=== PATIENT | male | born 1990 | race Caucasian/White ===

== ENCOUNTER → 2020-08-05 08:49 | Outpatient (CLI) | payer SELFPAY ==
--- NOTE | 2020-08-05 08:57 | VDLE_ITS ---
Reason For Study: Hx of DVT RIGHT GSV is normal. CFV is compressible, spontaneous, phasic, competent and demonstrates normal augmentation. FV is compressible, spontaneous, phasic, competent and demonstrates normal augmentation. POP V is compressible, spontaneous, phasic, competent and demonstrates normal augmentation. T/P Trunk is compressible. PTV is compressible. RT PerV is compressible. Procedure Exam performed in department. A preliminary report was called and/or faxed to [facility]. Interpretation Summary Deep veins of the right lower extremity are patent and compressible segmentally. There is no evidence of right lower extremity deep vein thrombosis. Valvular competence appears intact within the proximal deep venous system on the right . The right great saphenous vein appears patent and compressible segmentally. Ordering Physician: Matthew Loera Referring Physician: Matthew Loera Performed By: Jennifer Reid RVT
== END ==
PROVIDERS: PCP Physician Assistant; Referring Provider Physician Assistant; Visit Provider Physician Assistant
DX: Z86.718 Personal history of other venous thrombosis and embolism (principal)
CPT/HCPCS: 93971

== ENCOUNTER → 2020-09-05 12:03 | Outpatient (CLI) | payer SELFPAY | PROVIDERS: PCP Physician Assistant; Referring Provider Physician Assistant; Visit Provider Physician Assistant | DX: U07.1 COVID-19 (principal) | CPT/HCPCS: 87635; C9803; U0003 ==

== ENCOUNTER 2024-03-03 10:43 | Inpatient (IN) | payer SELFPAY ==
[2024-03-03] VITALS (13 sets, daily range): BP systolic 106–136; BP diastolic 62–84; PULSE 75–93; RESP 14–18; TEMP 36.8–37.3; O2SAT 94–98; BMI 28.7; BMI 28.6
--- NOTE | 2024-03-03 12:58 | ED.VIS.LOWEX ---
HPI History of Present Illness HPI Narrative: Patient presents with left knee pain and swelling that has been getting worse over the past 5 days. Patient was seen yesterday at a different facility and had aspiration performed there. Patient states that they sandra off 75 cc of cloudy yellow fluid. Patient states he was given a dose of IM Rocephin and was started on Augmentin. Patient states that he was still having some pain and swelling today. Patient states that that he was told to come to the emergency department for further testing. Patient states he has been running low-grade fevers of 100.6 at home. Chief Complaint: Lower Extremity Injury Informant: patient Onset/Context/Timing Onset: Days (5) Timing: Continuous Quality of Pain: Sharp Location: Left knee Worsened by: Movement Relieved by: Rest Associated Symptoms Associated Symptoms: Negative for Parasthesia or Weakness PFSH FOR[facility]LY [facility], [facility] Medical History (Updated 03/03/24 @ 17:[address] Zuhair Butt DO) DVT (deep venous thrombosis) Allergy/AdvReac Type Severity Reaction Status Date / Time No Known Allergies Allergy Verified 03/03/24 10:43 Surgical History (Updated 03/03/24 @ 15:[address] Zuhair Butt DO) History of repair of ACL Social History Smoking Status: Never smoker ROS ROS ED Constitutional Constitutional ED: Reports fever(s); Denies chills Eyes Eyes: Denies blurry vision or change in vision ENT ENT ED: Denies rhinorrhea or sore throat Cardiovascular Cardiovascular: Denies chest pain or palpitations Respiratory/Chest Respiratory/Chest: Reports cough; Denies dyspnea Gastrointestinal Gastrointestinal: Denies nausea or vomiting Genitourinary Genitourinary ED: Denies dysuria or hematuria Musculoskeletal Musculoskeletal: Denies back pain or neck pain Integumentary Denies abscess or rash Neurologic Neurologic: Denies headache(s) or weakness Allergic/Immunologic Allergic/Immunologic ED: Denies mouth swelling or urticaria EXAM Physical Exam Const Vital Signs: 03/03/24 10:44 03/03/24 12:00 03/03/24 13:00 Temperature 99.1 F 98.3 F 98.4 F Temperature Source Temporal Oral Oral Pulse Rate 93 82 82 Respiratory Rate 18 16 18 Blood Pressure 133/79 H 134/84 H 134/71 H Blood Pressure Mean 97 100 92 Pulse Ox 96 94 98 Oxygen Delivery Method Room Air Room Air Room Air 03/03/24 14:00 03/03/24 15:00 03/03/24 16:00 Temperature 98.2 F 98.5 F 98.4 F Temperature Source Temporal Temporal Oral Pulse Rate 79 78 85 Respiratory Rate 14 16 16 Blood Pressure 131/73 H 128/74 H 125/68 H Blood Pressure Mean 92 92 87 Pulse Ox 98 98 97 Oxygen Delivery Method Room Air Room Air 03/03/24 17:00 03/03/24 18:03 Temperature 98.2 F 98.9 F Temperature Source Oral Temporal Pulse Rate 81 84 Respiratory Rate 16 16 Blood Pressure 126/82 H 129/80 H Blood Pressure Mean 96 96 Pulse Ox 97 98 Oxygen Delivery Method Room Air Room Air Positive well nourished and well developed General Appearance ED: well developed and NAD HEENT Reports moist mucous membranes Neck full ROM Resp normal respiratory effort and clear to auscultation bilaterally Cardio regular rate and regular rhythm GI non-tender and non-distended Palpation: soft Extremity Extremity Narrative: There is edema and effusion to the left knee. There is no erythema or warmth noted. Range of motion was slightly limited in complete flexion of the left knee secondary to pain. There is no pain with short arc range of motion. There is no ligamentous laxity noted. Neuro oriented x3, CN's II-XII intact bilaterally, moves all extremities and no sensory deficits noted Sensorium / Orientation: alert Motor Exam: strength 5/5 throughout Psych mental status grossly normal MDM MDM MDM Narrative Medical decision making narrative: Differential diagnosis includes arthritis, septic joint, pseudogout, and gout. CBC will be obtained to assess for leukocytosis or anemia. Basic metabolic profile will be obtained to assess for electrolyte abnormality and renal function. Serum lactate will be obtained to assess for sepsis. PT with INR and PTT will be obtained to assess for coagulopathy. Sed rate and CRP will be obtained to assess for inflammatory markers. Lab Data Attestation: I reviewed the patient's lab results. Lab results narrative: CBC was reviewed. White blood cell count was normal at 9.1. Sed rate was reviewed and was normal at 11. PT with INR was reviewed and was 16.2 and 1.3. PTT was reviewed and was within normal limits. Basic metabolic profile was reviewed and was within normal limits. Serum lactate was reviewed and was normal at 0.9. C-reactive protein was reviewed and was elevated at 105. Synovial Gram stain was reviewed and did not show any organisms. Labs: Laboratory Results - last 24 hr 03/03/24 13:20 WBC 9.1 RBC 5.38 Hgb 14.8 Hct 44.0 MCV 81.8 MCH 27.5 MCHC 33.6 RDW Std Deviation 34.5 L RDW Coeff of Camelia 11.8 Plt Count 287 MPV 9.8 Immature Gran % (Auto) 0.300 Neut % (Auto) 69.0 Lymph % (Auto) 17.6 L [place] % (Auto) 12.8 H Eos % (Auto) 0.1 Baso % (Auto) 0.2 Absolute Neuts (auto) 6.3 Absolute Lymphs (auto) 1.60 Nucleated RBC % 0 ESR 11 PT 16.2 H INR 1.3 APTT 34.0 Sodium 138 Potassium 3.5 Chloride 108 H Carbon Dioxide 26.0 Anion Gap 4 L BUN 14 Creatinine 0.82 Estim Creat Clear Calc 145.14 Est GFR (MDRD) Af Amer 140 Est GFR (MDRD) Non-Af 116 BUN/Creatinine Ratio 17.2 Glucose 93 Lactic Acid 0.9 Calcium 9.1 C-React Prot Ext Range 105.00 H Treatment and Re-Evaluation Narrative: Patient was started on Unasyn here. We were unable to obtain results of his arthrocentesis yesterday. Therefore, repeat arthrocentesis was performed today. The lateral aspect of the left knee was cleaned and prepped in a sterile manner using Betadine. Under sterile conditions, the left knee was aspirated. Initial synovial fluid was yellow. The second syringe noted some bleeding in the syringe. I was able to aspirate approximately 55 cc of synovial fluid. Patient felt better after this. Synovial fluid was sent for cell count and differential, Gram stain, crystals, and culture. Care of the patient will be turned over to the oncoming physician pending synovial fluid results. Discharge Plan Triage Chief Complaint: Lower Extremity Injury ED Provider: Zuhair Butt Dx/Rx/DC Orders Clinical Impression: Effusion of knee joint, left Primary Care Provider: Matthew Loera Referrals: Matthew Loera PA-C [Primary Care Provider] -
[2024-03-03] MEDS: Ampicillin/Sulbactam 3 GM in 0.9% Normal Saline (100mL MB+) 100 ML IV ×2 (13:31→23:36)
[2024-03-03 13:38] LABS: Erythrocyte Sedimentation Rate 11 mm/hr (0-20)
[2024-03-03 13:39] LABS: Absolute Neutrophil Count 6.3 X10^3/uL (2.0-7.7); Basophil# 0.02 X10^3/uL; Basophil% 0.2 % (0-1); Eosinophil# 0.01 X10^3/uL; Eosinophils% 0.1 % (0-5); Hemoglobin 14.8 g/dL (13.0-16.5); Lymphocyte % 17.6 % (19-41); Mean Corp Hgb Conc 33.6 g/dL (32-36); Mean Corpuscular Hgb 27.5 pg (27.0-32.0); Mean Corpuscular Volume 81.8 fL (80-94); Mean Platelet Vol. 9.8 fl (6.2-12.0); Monocyte# 1.16 X10^3/uL; Monocyte% 12.8 % (0-10); NRBC Flagged by Analyzer 0 % (0-5); Neutrophil # 6.26 X10^3/uL (2.7-7.7); Platelet Count 287 K/mm3 (150-450); RBC Distribution Width CV 11.8 % (11.6-14.6); RBC Distribution Width SD 34.5 fl (35.1-43.9); Red Blood Count 5.38 M/mm3 (4.6-6.2); White Blood Count 9.1 K/mm3 (4.4-11.0)
[2024-03-03 13:50] LABS: Anion Gap 4 (5-15); BUN 14 mg/dL (7-18); BUN/Creat Ratio 17.2 RATIO (10-20); Calcium,Total 9.1 mg/dL (8.5-10.1); Chloride 108 mmol/L (98-107); Creatinine, Serum 0.82 mg/dL (0.70-1.30); EST Glomerular Filtration Rate 116 mL/min (>60); Est Glom Filt Rate - Afr Amer 140 mL/min (>60); Estimated Creatinine Clearance 145.14 ml/min; Glucose 93 mg/dL (74-106); International Normalized Ratio 1.3; Potassium 3.5 mmol/L (3.5-5.1); Prothrombin Time (Protime)PT. 16.2 SECONDS (11.7-14.9); Sodium Level 138 mmol/L (136-145)
[2024-03-03 13:54] LABS: Lactic Acid 0.9 mmol/L (0.4-1.9)
[2024-03-03 18:20] LABS: Synovial Fld Mononuclear WBC # 2.103 10^3/ul; Synovial Fld Mononuclear WBC % 10.6 %; Synovial Fld Polynuclear WBC # 17.637 10^3/uL; Synovial Fld Polynuclear WBC % 89.4 %
[2024-03-03 19:28] LABS: RBC /Synovial Fluid 0.006 10^6/uL (0)
[2024-03-03 20:41] LABS: AUTO B FLUID DILUENT BKGD CT WBC <0.1 RBC <0.01 (W<.1,R<.01); CRYSTALS, BODY FLUID NO CRYSTALS SEEN; Lymph 11 %; Monocyte /Synovial Fluid 7 %; Neutrophil 82 % (0-25)
[2024-03-03 20:42] LABS: Appearance /Synovial Fluid Cloudy (CLEAR); Color / Synovial Fluid Yellow (Pale Yellow); Source / Synovial Fluid LEFT KNEE; Source- Body Fluid SYNOVIAL
[2024-03-03 20:44] LABS: Body Fluid QC Type(s) BF1Q,BF2Q; Pathologist Review Will follow
--- NOTE | 2024-03-03 20:57 | PCM.HP.STD ---
HPI - General General Date of Admission: 03/03/24 Date of Service: 03/03/24 Chief Complaint: Left Knee Pain, Swelling and Fever. HPI Narrative PARVIN JEFFREY, is a 33 M with a past medical history of being overweight; with BMI of 28.7 this admission and history of repair of Right ACL; with subsequent DVT who presents to [facility] ER complaining of left knee pain, swelling and fever. Mr. Jeffrey reports his symptoms began approximately 5 days prior to admission with a gradual onset of left knee swelling and pain that progressed to him being unable to walk due to worsening pain so he went to see a care provider at another facility earlier today who performed arthrocentesis on the left knee and aspirated ~75 cc of cloudy fluid with suspicion for possible septic arthritis. He was given a dose of IM Rocephin and started on oral mild Augmentin with patient noted to have a fever of 100.6 ?F at home. He describes the pain as sharp, severe and made worse with movement and is relieved by rest. He denies associated nausea, vomiting, paresthesias, focal neurologic weakness or previous bouts of septic arthritis. According to the records patient had a synovial Gram stain that did not show any organisms or crystals but we are also awaiting results of culture and sensitivity data to confirm suspicion of a possible septic joint. In the ER he was diagnosed with suspected septic arthritis of the left knee joint and he was then started on broad-spectrum antibiotics and transferred to the general medical floor for ongoing care for status expected to be greater than 48 hours. [facility] Medical History (Updated 03/04/24 @ 00:[address] Americo Rollins DO) DVT (deep venous thrombosis) Home Medications NK 03/03/24 [History Last Taken Unknown] Allergy/AdvReac Type Severity Reaction Status Date / Time No Known Allergies Allergy Verified 03/03/24 10:43 Surgical History (Updated 03/04/24 @ 00:[address] Americo Rollins DO) History of repair of ACL Social History Smoking Status: Never smoker ROS ROS Narrative Review of systems: General: Patient did have fever but denies chills. HENT: Denies headache, denies stuffy nose, denies sore throat EYES: Denies changes in vision or discharge from eyes. Resp: Denies cough, denies shortness of breath Cardiac: Denies chest pain, palpitations or heart racing. GI: Denies abdominal pain, denies changes in bowel, denies nausea or vomiting. : Denies changes in urination Extremity: Patient admits to significant left knee swelling with limited range of motion and pain increased with movement as per HPI. Musculoskeletal: Patient admits to arthralgia of the left knee but denies myalgias. Neuro: Patient denies headache, paresthesias or focal neurologic deficits. Heme: Denies any bleeding or bruising Skin: Denies rashes Psychiatric: No complaints voiced related to uncontrolled depression or anxiety. Endocrine: No polyuria, polydipsia or polyphagia. The rest of the 14 point ROS was negative except for positives in HPI. Vital Signs Vital Signs Vital Signs: 03/03/24 10:44 03/03/24 12:00 03/03/24 13:00 Temperature 99.1 F 98.3 F 98.4 F Temperature Source Temporal Oral Oral Pulse Rate 93 82 82 Respiratory Rate 18 16 18 Blood Pressure 133/79 H 134/84 H 134/71 H Blood Pressure Mean 97 100 92 Pulse Ox 96 94 98 Oxygen Delivery Method Room Air Room Air Room Air 03/03/24 14:00 03/03/24 15:00 03/03/24 16:00 Temperature 98.2 F 98.5 F 98.4 F Temperature Source Temporal Temporal Oral Pulse Rate 79 78 85 Respiratory Rate 14 16 16 Blood Pressure 131/73 H 128/74 H 125/68 H Blood Pressure Mean 92 92 87 Pulse Ox 98 98 97 Oxygen Delivery Method Room Air Room Air 03/03/24 17:00 03/03/24 18:03 03/03/24 19:00 Temperature 98.2 F 98.9 F 98.6 F Temperature Source Oral Temporal Oral Pulse Rate 81 84 81 Respiratory Rate 16 16 18 Blood Pressure 126/82 H 129/80 H 126/82 H Blood Pressure Mean 96 96 96 Pulse Ox 97 98 96 Oxygen Delivery Method Room Air Room Air Room Air 03/03/24 20:00 Temperature 98.2 F Temperature Source Oral Pulse Rate 75 Respiratory Rate 16 Blood Pressure 136/74 H Blood Pressure Mean 94 Pulse Ox 97 Oxygen Delivery Method Room Air Weight Weight: 200 lb Body Mass Index (BMI) 28.7 Physical Exam Const alert, oriented x3, no apparent distress, average body habitus and healthy appearing General Appearance: cooperative HEENT normocephalic, head/scalp atraumatic, hearing grossly normal bilaterally and moist oral mucous membranes Eyes PERRL and EOMs intact bilaterally Neck no lymphadenopathy and supple Resp normal respiratory effort, no retractions, no use of accessory muscles and clear to auscultation bilaterally Cardio regular rate and regular rhythm GI normal to inspection, nondistended, normoactive bowel sounds, soft to palpation, non-tender and non-distended Extremity Extremity Narrative: Left knee tender to palpation with very limited range of motion secondary to pain. No signs of vascular compromise or good pulses. Skin Skin Narrative: Patient has no evidence of rash or jaundice. Neuro oriented x3, CN's II-XII intact bilaterally, moves all extremities and no focal motor deficits Sensorium / Orientation: awake, alert, oriented to person, oriented to place and oriented to time Speech: speech normal Psych affect normal Results Medical Records Data Attestation: I reviewed the patient's medical records Lab / Micro Data Attestation: I reviewed the patient's lab results. 03/03/24 13:20 03/03/24 13:20 Labs: Laboratory Results - last 24 hr 03/03/24 13:20: WBC 9.1, RBC 5.38, Hgb 14.8, Hct 44.0, MCV 81.8, MCH 27.5, MCHC 33.6, RDW Std Deviation 34.5 L, RDW Coeff of Camelia 11.8, Plt Count 287, MPV 9.8, Immature Gran % (Auto) 0.300, Neut % (Auto) 69.0, Lymph % (Auto) 17.6 L, [place] % (Auto) 12.8 H, Eos % (Auto) 0.1, Baso % (Auto) 0.2, Absolute Neuts (auto) 6.3, Absolute Lymphs (auto) 1.60, Nucleated RBC % 0, ESR 11, PT 16.2 H, INR 1.3, APTT 34.0, Sodium 138, Potassium 3.5, Chloride 108 H, Carbon Dioxide 26.0, Anion Gap 4 L, BUN 14, Creatinine 0.82, Estim Creat Clear Calc 145.14, Est GFR (MDRD) Af Amer 140, Est GFR (MDRD) Non-Af 116, BUN/Creatinine Ratio 17.2, Glucose 93, Lactic Acid 0.9, Calcium 9.1, C-React Prot Ext Range 105.00 H 03/03/24 16:57: Fluid Crystals NO CRYSTALS SEEN, Fluid Crystal Source SYNOVIAL, Fl Crystal Path Review Will follow, Synovial Source LEFT KNEE, Synovial Color Yellow, Synovial Appearance Cloudy, Synovial WBC 14.4660 H, Synovial RBC 0.006 H, Synovial Tot Cell Ct 14.5200 H, Synov Polynuclear WBCs 17.637, Synov Mononuclear WBCs 2.103, Synovial Neutrophils 82 H, Synovial Lymphocytes 11, Synovial Monocytes 7, Synovial Polynuclear % 89.4, Synovial Mononuclear % 10.6, Synovial Path Comment May follow Micro: Microbiology 03/03/24 16:57 Aspirate - Knee Gram Stain - Final Assessment & Plan Assessment/Plan (1) Septic arthritis: QUALIFIERS: Septic arthritis location: knee Septic arthritis organism: due to unspecified organism Laterality: left Qualified Code(s): M00.9 - Pyogenic arthritis, unspecified (2) Effusion of knee joint, left: (3) History of DVT (deep vein thrombosis): (4) History of repair of ACL: PLAN: Plan 1. Suspected septic arthritis of the left knee joint with fever and severe left knee pain and swelling and ~75 cc of cloudy joint aspirate - Admit to general medical floor. Continue broad-spectrum antibiotics begun in the ER and await culture and sensitivity data. As soon as we confirm suspicion of bacterial infection in joint patient will be taken for I&D by orthopedic surgeon with consult appreciated in advance. Give Tylenol as needed for mild to moderate (level 1-5 out of 10) pain or fever. Give morphine IV as needed for severe (level 6-10 out of 10) pain. 2. Remote history of repair of Right ACL; with subsequent DVT with the patient currently not on anticoagulation - Noted. 3. Overweight; with BMI of 28.7 this admission - Weight loss will be recommended. 4. DVT prophylaxis - SCD on right lower extremity only with likely impending surgical I&D. Total time: Approximately 45 minutes. Charges/Coding Visit Charges Inpatient E&M: 63975 Init Hosp L1
--- NOTE | 2024-03-03 21:51 | RAD_ITS ---
INDICATION: suspected septic arthritis of left knee joint EXAMINATION/TECHNIQUE: X-RAY - LEFT XR Knee Complete 4 Views or More 4 VIEWS COMPARISON: No relevant prior comparison study available FINDINGS: SOFT TISSUES: No soft tissue swelling or gas. No radiopaque foreign body. BONES/JOINTS: There is normal alignment with the exception of narrowing of the medial compartment, subchondral sclerosis and cystic changes and osteophyte formation noted. There is a small joint effusion. Remaining joint spaces are maintained. Patellar osteophytes are present. RAD/Knee 4 or More Views IMPRESSION: 1. Osteophytic changes most notable in the medial compartment with joint space narrowing, subchondral sclerosis and cystic changes and osteophyte formation. 2. Joint effusion. 3. Patellar osteophytes. Electronically Signed: Helio Mendoza MD at 23:31 EDT ,
[2024-03-03] MEDS: 0.9% Normal Saline (1000mL) 1,000 ML 100 ML IV (23:35)
[2024-03-03] MEDS: 0.9% Saline Lock 10 ML Syringe IV (23:36)
[2024-03-04 04:00] VITALS: BP 126/76; PULSE 78; RESP 16; TEMP 37.2; O2SAT 96
--- NOTE | 2024-03-04 05:00 | EKG12_ITS ---
Test Reason : AM EKG Blood Pressure : / mmHG Vent. Rate : 088 BPM Atrial Rate : 088 BPM P-R Int : 152 ms QRS Dur : 096 ms QT Int : 344 ms P-R-T Axes : 012 067 025 degrees QTc Int : 416 ms Normal sinus rhythm Normal ECG No previous ECGs available Confirmed by RAJIV GRIER, LINCOLN ([id number]), editor sound GILLES BRITT ([id number]) on 03/09/2024 1:48:42 PM Referred By: Confirmed By:KELLY VANCE MD
[2024-03-04 06:00] VITALS: BMI 28.5
[2024-03-04] MEDS: Ampicillin/Sulbactam 3 GM in 0.9% Normal Saline (100mL MB+) 100 ML IV ×2 (06:00→13:18)
[2024-03-04 06:50] VITALS: BMI 28.6
[2024-03-04 07:03] LABS: Absolute Lymphocyte Count 1.45 X10^3/uL (0.83-4.51); Absolute Neutrophil Count 5.5 X10^3/uL (2.0-7.7); Basophil# 0.02 X10^3/uL; Basophil% 0.3 % (0-1); Eosinophil# 0.02 X10^3/uL; Eosinophils% 0.3 % (0-5); Hematocrit 40.9 % (40-54); Hemoglobin 14.1 g/dL (13.0-16.5); Lymphocyte # 1.45 X10^3/ul (0.83-4.51); Lymphocyte % 18.2 % (19-41); Mean Corp Hgb Conc 34.5 g/dL (32-36); Mean Corpuscular Hgb 28.4 pg (27.0-32.0); Mean Corpuscular Volume 82.5 fL (80-94); Mean Platelet Vol. 9.7 fl (6.2-12.0); Monocyte# 1.01 X10^3/uL; Monocyte% 12.7 % (0-10); NRBC Flagged by Analyzer 0 % (0-5); Neutrophil # 5.45 X10^3/uL (2.7-7.7); Neutrophil % 68.1 % (47-70); Platelet Count 279 K/mm3 (150-450); RBC Distribution Width CV 11.8 % (11.6-14.6); RBC Distribution Width SD 35.5 fl (35.1-43.9); Red Blood Count 4.96 M/mm3 (4.6-6.2)
[2024-03-04 07:39] LABS: ALB/GLOB Ratio 0.8 RATIO (0.9-2.4); AST(SGOT) 20 U/L (15-37); Alanine Aminotransfer ALT/SGPT 35 U/L (16-61); Albumin, Serum 2.9 g/dL (3.2-5.0); Alkaline Phosphatase 62 U/L (45-117); Anion Gap 4 (5-15); BUN 14 mg/dL (7-18); BUN/Creat Ratio 17.9 RATIO (10-20); Calcium,Total 8.5 mg/dL (8.5-10.1); Chloride 109 mmol/L (98-107); Creatinine, Serum 0.78 mg/dL (0.70-1.30); EST Glomerular Filtration Rate 121 mL/min (>60); Est Glom Filt Rate - Afr Amer 146 mL/min (>60); Estimated Creatinine Clearance 152.29 ml/min; Globulin 3.8 g/dL (2.2-4.2); Glucose 99 mg/dL (74-106); Potassium 3.5 mmol/L (3.5-5.1); Protein, Total 6.7 g/dL (6.4-8.2); Sodium Level 141 mmol/L (136-145)
[2024-03-04 07:50] VITALS: PULSE 78
[2024-03-04 08:22] VITALS: BP 126/71; PULSE 84; RESP 16; TEMP 36.6; O2SAT 93
[2024-03-04 08:25] VITALS: PULSE 84; RESP 16; O2SAT 93
--- NOTE | 2024-03-04 10:09 | PN.HOSP_ITS ---
Reason for Visit Reason for Visit: Diagnoses Pyogenic arthritis, unspecified (03/03/24) Effusion, left knee (03/03/24) Personal history of other venous thrombosis and embolism (03/03/24) Other specified postprocedural states (03/03/24) Objective Data Objective Data Vital Signs: Vital Signs Temp Pulse Resp BP Pulse Ox O2 Del Method 97.8 F 84 16 126/71 H 93 Room Air 03/04/24 08:22 03/04/24 08:25 03/04/24 08:25 03/04/24 08:22 03/04/24 08:25 03/04/24 08:25 Oxygen Delivery Method Room Air Weight: 199 lb 2.4 oz Body Mass Index (BMI) 28.6 Intake & Output: Intake and Output for Last 24 Hours 03/02/24 03/03/24 03/04/24 23:59 23:59 23:59 Intake Total 120.33 / 120.33 224 / 224 Balance 120.33 / 120.33 224 / 224 Lab / Micro Data 03/04/24 06:29 03/04/24 06:29 Labs: Laboratory Results - last 24 hr 03/03/24 13:20: WBC 9.1, RBC 5.38, Hgb 14.8, Hct 44.0, MCV 81.8, MCH 27.5, MCHC 33.6, RDW Std Deviation 34.5 L, RDW Coeff of Cmaelia 11.8, Plt Count 287, MPV 9.8, Immature Gran % (Auto) 0.300, Neut % (Auto) 69.0, Lymph % (Auto) 17.6 L, [place] % (Auto) 12.8 H, Eos % (Auto) 0.1, Baso % (Auto) 0.2, Absolute Neuts (auto) 6.3, Absolute Lymphs (auto) 1.60, Nucleated RBC % 0, ESR 11, PT 16.2 H, INR 1.3, APTT 34.0, Sodium 138, Potassium 3.5, Chloride 108 H, Carbon Dioxide 26.0, Anion Gap 4 L, BUN 14, Creatinine 0.82, Estim Creat Clear Calc 145.14, Est GFR (MDRD) Af Amer 140, Est GFR (MDRD) Non-Af 116, BUN/Creatinine Ratio 17.2, Glucose 93, Lactic Acid 0.9, Calcium 9.1, C-React Prot Ext Range 105.00 H 03/03/24 16:57: Fluid Crystals NO CRYSTALS SEEN, Fluid Crystal Source SYNOVIAL, Fl Crystal Path Review Will follow, Synovial Source LEFT KNEE, Synovial Color Yellow, Synovial Appearance Cloudy, Synovial WBC 14.4660 H, Synovial RBC 0.006 H , Synovial Tot Cell Ct 14.5200 H, Synov Polynuclear WBCs 17.637, Synov Mononucle ar WBCs 2.103, Synovial Neutrophils 82 H, Synovial Lymphocytes 11, Synovial Monocytes 7, Synovial Polynuclear % 89.4, Synovial Mononuclear % 10.6, Synovial Path Comment May follow 03/04/24 06:29: WBC 8.0, RBC 4.96, Hgb 14.1, Hct 40.9, MCV 82.5, MCH 28.4, MCHC 34.5, RDW Std Deviation 35.5, RDW Coeff of Camelia 11.8, Plt Count 279, MPV 9.7, Immature Gran % (Auto) 0.400, Neut % (Auto) 68.1, Lymph % (Auto) 18.2 L, [place] % (Auto) 12.7 H, Eos % (Auto) 0.3, Baso % (Auto) 0.3, Absolute Neuts (auto) 5.5, Absolute Lymphs (auto) 1.45, Nucleated RBC % 0, Sodium 141, Potassium 3.5, Chloride 109 H, Carbon Dioxide 28.0, Anion Gap 4 L, BUN 14, Creatinine 0.78, Estim Creat Clear Calc 152.29, Est GFR (MDRD) Af Amer 146, Est GFR (MDRD) Non-Af 121, BUN/Creatinine Ratio 17.9, Glucose 99, Calcium 8.5, Phosphorus 3.0, Magnesium 2.0, Total Bilirubin 0.40, AST 20, ALT 35, Alkaline Phosphatase 62, Total Protein 6.7, Albumin 2.9 L, Globulin 3.8, Albumin/Globulin Ratio 0.8 L Micro: Microbiology 03/03/24 16:57 Fluid - Synovial (joint) Gram Stain - Final 03/03/24 16:57 Aspirate - Knee Gram Stain - Final Radiography Diagnostic Testing: Radiology Impression Knee X-Ray 03/03/24 21:51 IMPRESSION: 1. Osteophytic changes most notable in the medial compartment with joint space narrowing, subchondral sclerosis and cystic changes and osteophyte formation. 2. Joint effusion. 3. Patellar osteophytes. Electronically Signed: Helio Mendoza MD at 23:31 EDT , Assessment & Plan Assessment/Plan (1) Septic arthritis: QUALIFIERS: Laterality: left Septic arthritis location: knee Septic arthritis organism: due to unspecified organism Qualified Code(s): M00.9 - Pyogenic arthritis, unspecified (2) History of DVT (deep vein thrombosis): PLAN: Plan This 33-year-old gentleman came to ED with left knee severe pain and swelling getting worse over 5 days. Patient was seen yesterday and had aspiration there, improved to 75 cc of cloudy yellow fluid. Was given 1 dose of IM Rocephin started on Augmentin. Fever low-grade temperature 78.6 ?F at home. 1. Suspected septic arthritis of the left knee joint with fever and severe left knee pain and swelling and ~75 cc of cloudy joint aspirate - Admit to general medical floor. Continue broad-spectrum antibiotics begun in the ER and await culture and sensitivity data. As soon as we confirm suspicion of bacterial infection in joint patient will be taken for I&D by orthopedic surgeon with consult appreciated in advance. Give Tylenol as needed for mild to moderate (level 1-5 out of 10) pain or fever. Give morphine IV as needed for severe (level 6-10 out of 10) pain. 2. Remote history of repair of Right ACL; with subsequent DVT with the patient currently not on anticoagulation - Noted. 3. Overweight; with BMI of 28.7 this admission - Weight loss will be recommended. 4. DVT prophylaxis - SCD on right lower extremity only with likely impending surgical I&D. Total time: Approximately 45 minutes. Please cancel this progress note
[2024-03-04 10:44] VITALS: BMI 28.5
[2024-03-04 11:40] VITALS: BP 137/79; PULSE 75; RESP 16; TEMP 36.8; O2SAT 98
[2024-03-04] MEDS: 0.9% Normal Saline (1000mL) 1,000 ML 100 ML IV (11:44)
--- NOTE | 2024-03-04 12:41 | CONS.ORTHO ---
HPI Consult Data Date of Consult: 03/04/24 HPI Narrative HPI Narrative: PARVIN ZAMORANO, is a 33 M who presents male who developed left knee pain on Saturday. 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 He developed stiffness at the left knee. The next day he had trouble walking because increasing pain and stiffness. By Saturday he felt he could not really walk around on it. He went to his primary care doctor on Saturday and had his knee aspirated, was given an antibiotic shot, was started on Augmentin. Patient did have low-grade fever reportedly. On Saturday his pain became worse and he went to [facility] on Saturday morning at about 10 AM. Knee was again drained. Orthopedics was consulted approximately 7 PM. Patient states his knee pain was 8 out of 10 at worst. Currently pain 0 or 1 out of 10. Patient does admit to a knee injury when he was 15 or 16 years old. He has had intermittent knee pain and swelling over the years. Never quite this bad. [facility] Medical History DVT (deep venous thrombosis) Home Medications NK 03/03/24 [History Last Taken Unknown] Allergy/AdvReac Type Severity Reaction Status Date / Time No Known Allergies Allergy Verified 03/03/24 10:43 Surgical History History of repair of ACL Social History Smoking Status: Never smoker ROS ROS Narrative He thinks he may have a dental infection. He does admit to having a cold about 2 weeks ago. He denies any recent changes to heart or lungs bowel or bladder symptoms. Intermittent left knee pain and swelling as noted above Vital Signs Vital Signs Vital Signs: 03/03/24 13:00 03/03/24 14:00 03/03/24 15:00 Temperature 98.4 F 98.2 F 98.5 F Temperature Source Oral Temporal Temporal Pulse Rate 82 79 78 Respiratory Rate 18 14 16 Respiratory Effort Respiratory Depth Respiratory Pattern Blood Pressure 134/71 H 131/73 H 128/74 H Blood Pressure Mean 92 92 92 Blood Pressure Source Blood Pressure Position Blood Pressure Location Pulse Ox 98 98 98 Oxygen Delivery Method Room Air Room Air Room Air 03/03/24 16:00 03/03/24 17:00 03/03/24 18:03 Temperature 98.4 F 98.2 F 98.9 F Temperature Source Oral Oral Temporal Pulse Rate 85 81 84 Respiratory Rate 16 16 16 Respiratory Effort Respiratory Depth Respiratory Pattern Blood Pressure 125/68 H 126/82 H 129/80 H Blood Pressure Mean 87 96 96 Blood Pressure Source Blood Pressure Position Blood Pressure Location Pulse Ox 97 97 98 Oxygen Delivery Method Room Air Room Air 03/03/24 19:00 03/03/24 20:00 03/03/24 21:00 Temperature 98.6 F 98.2 F 98.4 F Temperature Source Oral Oral Pulse Rate 81 75 82 Respiratory Rate 18 16 18 Respiratory Effort Respiratory Depth Respiratory Pattern Blood Pressure 126/82 H 136/74 H 128/74 H Blood Pressure Mean 96 94 92 Blood Pressure Source Blood Pressure Position Blood Pressure Location Pulse Ox 96 97 96 Oxygen Delivery Method Room Air Room Air 03/03/24 22:00 03/03/24 23:10 03/03/24 23:45 Temperature 98.2 F 98.2 F Temperature Source Oral Oral Pulse Rate 78 92 Respiratory Rate 18 16 Respiratory Effort Normal Non-Labored Respiratory Depth Normal Respiratory Pattern Normal Blood Pressure 106/62 135/73 H Blood Pressure Mean 76 93 Blood Pressure Source Monitor Blood Pressure Position Semi-Fowlers Blood Pressure Location Right Arm Pulse Ox 95 96 Oxygen Delivery Method Room Air Room Air Room Air 03/04/24 04:00 03/04/24 08:22 03/04/24 08:25 Temperature 98.9 F 97.8 F Temperature Source Temporal Oral Pulse Rate 78 84 84 Respiratory Rate 16 16 16 Respiratory Effort Respiratory Depth Respiratory Pattern Blood Pressure 126/76 H 126/71 H Blood Pressure Mean 92 89 Blood Pressure Source Monitor Monitor Blood Pressure Position Semi-Fowlers Semi-Fowlers Blood Pressure Location Right Arm Pulse Ox 96 93 93 Oxygen Delivery Method Room Air Room Air Room Air 03/04/24 10:31 03/04/24 11:40 03/04/24 07:50 Temperature 98.3 F Temperature Source Oral Pulse Rate 75 78 Respiratory Rate 16 Respiratory Effort Normal Respiratory Depth Normal Respiratory Pattern Normal Blood Pressure 137/79 H Blood Pressure Mean 98 Blood Pressure Source Monitor Blood Pressure Position Blood Pressure Location Pulse Ox 98 Oxygen Delivery Method Room Air Room Air Weight Weight: 90.333 kg Body Mass Index (BMI) 28.5 Physical Exam Narrative Left knee has a grade 2+ effusion. Left knee motion is 0 to 90 degrees. Left knee has no severe pain on palpation. No calf pain or swelling. Negative Homans' sign. Legs are neurovascular intact. X-rays several views of the left knee from March 03, 2024 shows severe arthritis of the knee. There is near rvvo-ma-haqr contact medially. Bone spurring diffusely. Some patellofemoral arthritis. Medical Records Data Attestation: I reviewed the patient's medical records Lab / Micro Data Attestation: I reviewed the patient's lab results. 03/04/24 06:29 03/04/24 06:29 Labs: Laboratory Results - last 24 hr 03/03/24 13:20: WBC 9.1, RBC 5.38, Hgb 14.8, Hct 44.0, MCV 81.8, MCH 27.5, MCHC 33.6, RDW Std Deviation 34.5 L, RDW Coeff of Camelia 11.8, Plt Count 287, MPV 9.8, Immature Gran % (Auto) 0.300, Neut % (Auto) 69.0, Lymph % (Auto) 17.6 L, [place] % (Auto) 12.8 H, Eos % (Auto) 0.1, Baso % (Auto) 0.2, Absolute Neuts (auto) 6.3, Absolute Lymphs (auto) 1.60, Nucleated RBC % 0, ESR 11, PT 16.2 H, INR 1.3, APTT 34.0, Sodium 138, Potassium 3.5, Chloride 108 H, Carbon Dioxide 26.0, Anion Gap 4 L, BUN 14, Creatinine 0.82, Estim Creat Clear Calc 145.14, Est GFR (MDRD) Af Amer 140, Est GFR (MDRD) Non-Af 116, BUN/Creatinine Ratio 17.2, Glucose 93, Lactic Acid 0.9, Calcium 9.1, C-React Prot Ext Range 105.00 H 03/03/24 16:57: Fluid Crystals NO CRYSTALS SEEN, Fluid Crystal Source SYNOVIAL, Fl Crystal Path Review Will follow, Synovial Source LEFT KNEE, Synovial Color Yellow, Synovial Appearance Cloudy, Synovial WBC 14.4660 H, Synovial RBC 0.006 H, Synovial Tot Cell Ct 14.5200 H, Synov Polynuclear WBCs 17.637, Synov Mononuclear WBCs 2.103, Synovial Neutrophils 82 H, Synovial Lymphocytes 11, Synovial Monocytes 7, Synovial Polynuclear % 89.4, Synovial Mononuclear % 10.6, Synovial Path Comment May follow 03/04/24 06:29: WBC 8.0, RBC 4.96, Hgb 14.1, Hct 40.9, MCV 82.5, MCH 28.4, MCHC 34.5, RDW Std Deviation 35.5, RDW Coeff of Camelia 11.8, Plt Count 279, MPV 9.7, Immature Gran % (Auto) 0.400, Neut % (Auto) 68.1, Lymph % (Auto) 18.2 L, [place] % (Auto) 12.7 H, Eos % (Auto) 0.3, Baso % (Auto) 0.3, Absolute Neuts (auto) 5.5, Absolute Lymphs (auto) 1.45, Nucleated RBC % 0, Sodium 141, Potassium 3.5, Chloride 109 H, Carbon Dioxide 28.0, Anion Gap 4 L, BUN 14, Creatinine 0.78, Estim Creat Clear Calc 152.29, Est GFR (MDRD) Af Amer 146, Est GFR (MDRD) Non-Af 121, BUN/Creatinine Ratio 17.9, Glucose 99, Calcium 8.5, Phosphorus 3.0, Magnesium 2.0, Total Bilirubin 0.40, AST 20, ALT 35, Alkaline Phosphatase 62, Total Protein 6.7, Albumin 2.9 L, Globulin 3.8, Albumin/Globulin Ratio 0.8 L Micro: Microbiology 03/03/24 16:57 Fluid - Synovial (joint) Gram Stain - Final 03/03/24 16:57 Aspirate - Knee Gram Stain - Final Imaging Radiology Impression Knee X-Ray 03/03/24 21:51 IMPRESSION: 1. Osteophytic changes most notable in the medial compartment with joint space narrowing, subchondral sclerosis and cystic changes and osteophyte formation. 2. Joint effusion. 3. Patellar osteophytes. Electronically Signed: Helio Mendoza MD at 23:31 EDT , Assessment & Plan Assessment/Plan (1) Effusion of knee joint, left: PLAN: His diagnosis and treatment options regarding his left knee effusion, significant left knee arthritis, doubt septic knee, discussed with him at length. Case was discussed with his nurse. Case was discussed with Dr. Velasco. Based on the patient's history and physical exam and x-ray findings laboratory results at this point I do not feel he has a septic knee. I think he has knee swelling from his arthritis. We are awaiting final culture results. Cultures have been done at [facility] as well as through [facility]. We are following both. Patient did wish to have his left knee reaspirated which may help with pain, and would be of benefit if there were an infected knee. Procedure: After obtaining appropriate consent patient's left knee was prepped with Betadine and alcohol. I used an 18-gauge needle and obtained 50 cc of somewhat cloudy yellowish fluid that became blood-tinged. Patient tolerated that well. Sterile bandage applied. After discussion with Dr. Vaca,, fluid was not sent for further studies Patient will continue on antibiotic treatment per infectious disease service. Patient understands there is still a chance this could represent a septic knee although unlikely. If we determine high likelihood of septic knee arthroscopic knee surgery would be recommended. Otherwise we may consider discharge and follow-up in the office for potential cortisone shot if cultures show no signs of infected knee.
[2024-03-04] MEDS: Acetaminophen 325 MG Tablet 650 MG PO (13:25)
--- NOTE | 2024-03-04 13:59 | CON.PCM.ID_ITS ---
Assessment & Plan Assessment/Plan (1) Effusion of knee joint, left: PLAN: Knee fluid mildly elevated wbc. Cx neg so far. Had outpt aspiration done 03/02/24. On unasyn. Plan on discharge with 5 more days po augmentin 875mg bid while cxs finalize. Will follow, thank you, d/w Dr. Zamorano and Dr. Ontiveros HPI Consult Data Date of Consult: 03/04/24 HPI Narrative Reason for Consultation: septic arthritis HPI Narrative: PARVIN ZAMORANO, is a 33 M who presented with about 5 days progressive L knee pain, swelling, low grade fever. No known inciting event. Saw PCP 03/02, aspiration done, given IM ceftriaxone and the po augmentin. Pain in knee was sharp, worse with movement. No redness to knee. Came to ED, admitted on unasyn, another aspiration done, feeling better. Full ROS Performed and neg except as noted above. [facility] Medical History DVT (deep venous thrombosis) Home Medications NK 03/03/24 [History Last Taken Unknown] Allergy/AdvReac Type Severity Reaction Status Date / Time No Known Allergies Allergy Verified 03/03/24 10:43 Surgical History History of repair of ACL Social History Smoking Status: Never smoker Physical Exam Const alert, oriented x3 and no apparent distress General Appearance: cooperative HEENT normocephalic and head/scalp atraumatic Eyes PERRL and EOMs intact bilaterally Neck supple and No nodes Resp normal air movement and clear to auscultation bilaterally Cardio regular rate and regular rhythm GI soft to palpation, non-tender and non-distended Extremity Extremity Narrative: L knee swelling, soreness Skin no rashes or lesions noted Neuro CN's II-XII intact bilaterally Lab / Micro Data Attestation: I reviewed the patient's lab results. 03/04/24 06:29 03/04/24 06:29 Labs: Laboratory Results - last 24 hr 03/03/24 16:57: Fluid Crystals NO CRYSTALS SEEN, Fluid Crystal Source SYNOVIAL, Fl Crystal Path Review Will follow, Synovial Source LEFT KNEE, Synovial Color Yellow, Synovial Appearance Cloudy, Synovial WBC 14.4660 H, Synovial RBC 0.006 H , Synovial Tot Cell Ct 14.5200 H, Synov Polynuclear WBCs 17.637, Synov Mononuclear WBCs 2.103, Synovial Neutrophils 82 H, Synovial Lymphocytes 11, Synovial Monocytes 7, Synovial Polynuclear % 89.4, Synovial Mononuclear % 10.6, Synovial Path Comment May follow 03/04/24 06:29: WBC 8.0, RBC 4.96, Hgb 14.1, Hct 40.9, MCV 82.5, MCH 28.4, MCHC 34.5, RDW Std Deviation 35.5, RDW Coeff of Camelia 11.8, Plt Count 279, MPV 9.7, Immature Gran % (Auto) 0.400, Neut % (Auto) 68.1, Lymph % (Auto) 18.2 L, [place] % (Auto) 12.7 H, Eos % (Auto) 0.3, Baso % (Auto) 0.3, Absolute Neuts (auto) 5.5, Absolute Lymphs (auto) 1.45, Nucleated RBC % 0, Sodium 141, Potassium 3.5, Chloride 109 H, Carbon Dioxide 28.0, Anion Gap 4 L, BUN 14, Creatinine 0.78, Estim Creat Clear Calc 152.29, Est GFR (MDRD) Af Amer 146, Est GFR (MDRD) Non-Af 121, BUN/Creatinine Ratio 17.9, Glucose 99, Calcium 8.5, Phosphorus 3.0, Magnesium 2.0, Total Bilirubin 0.40, AST 20, ALT 35, Alkaline Phosphatase 62, Total Protein 6.7, Albumin 2.9 L, Globulin 3.8, Albumin/Globulin Ratio 0.8 L Micro: Microbiology 03/03/24 16:57 Fluid - Synovial (joint) Gram Stain - Final 03/03/24 16:57 Aspirate - Knee Gram Stain - Final Imaging Radiology Impression Knee X-Ray 03/03/24 21:51 IMPRESSION: 1. Osteophytic changes most notable in the medial compartment with joint space narrowing, subchondral sclerosis and cystic changes and osteophyte formation. 2. Joint effusion. 3. Patellar osteophytes. Electronically Signed: Helio Mendoza MD at 23:31 EDT ,
--- NOTE | 2024-03-04 15:31 | DCINST_ITS ---
Discharge Instructions Diet Discharge Diet: No restrictions Activity Discharge Activity: Return to Normal Activity Weight Bearing Status: Weight bearing as tolerated Dressing / Incision Call your doctor if you observe: Fever of 101 or Higher, Coldness, Increased Pain, Numbness or Tingling, Change in Color, Inability to urinate, Inability to have a bowel movement, Shortness of breath, Dizziness, Fainting spells, Swelling in the ankles, Chest pain, Prolonged hiccupping, Increased palpitations (irregular heartbeat) and Calf discomfort Follow Up Care When: IN 2 WEEKS Test Results: Test results from this visit will be discussed in further detail at your follow- up appointment, if applicable. Discharge Plan Admission Admit Date/Time: 03/03/24 21:14 Primary Reason for Your Visit: Right knee effusion Attending Provider: Yazan Ontiveros Primary Care Provider: Matthew Loera Consulting Providers: Americo Rollins; Nam Vaca; Zeferino Jeffrey Instructions Additional Instructions / Restrictions: Ewux-wac-kytgzvm Tylenol 500 mg to 1000 mg every 8 hourly as needed for severe pain. Ibuprofen jevt-hjk-axdkhrh 400 mg to 600 mg every 8 hourly for severe pain Discharge Orders/Prescriptions Prescriptions: New amoxicillin-pot clavulanate 875-125 mg tablet 1 tab PO BID 5 Days Qty: 10 0RF Referrals / Follow Up: Matthew Loera PA-C [Primary Care Provider] - Within 1 Week Zeferino Jeffrey MD [Med Staff - Active Staff] - Within 2 Weeks Disposition Disposition (needs filled in before D/C Order can be placed): Home, Self Care
--- NOTE | 2024-03-04 15:31 | PCM.DC.SUM ---
Providers Date of Admission: 03/03/24 Date of Discharge: 03/04/24 Primary Care Physician: Matthew Loera PA-C Consultations 03/03/24 22:48 Consult: Infectious Disease Routine Consulting Provider: Nam Vaca Reason for Consult: suspected septic arthritis of left knee joint EMERGENT Consult: No Notified: Yes Date Notified: 03/03/24 Time Notified: 07:54 Method of Notification: Text 03/04/24 10:12 Consult: Orthopedics Routine Consulting Provider: Zeferino Jeffrey Reason for Consult: Left knee suspected septic arthritis EMERGENT Consult: No Notified: Yes Date Notified: 03/03/24 Time Notified: 17:12 Method of Notification: ED Physician Initiated Reason For Visit: SUSPECTED SEPTIC ARTHRITIS OF LEFT KNEE JOINT Diagnosis Discharge Diagnosis (1) Effusion of knee joint, left: Status: Acute Code(s): M25.462 - Effusion, left knee Plan This 33-year-old gentleman came to ED with left knee severe pain and swelling getting worse over 5 days. Patient was seen yesterday and had aspiration there, improved to 75 cc of cloudy yellow fluid. Was given 1 dose of IM Rocephin started on Augmentin. Fever low-grade temperature 78.6 ?F at home. 1. Left knee effusion with left knee pain and swelling, Septic arthritis unlikely: Patient was admitted on the MedSurg floor with suspected septic arthritis of the left knee joint with fever and severe left knee pain and swelling and ~75 cc of cloudy joint aspirate. Continue broad-spectrum antibiotics begun in the ER and await culture and sensitivity data. Based on the initial Gram stain which did not show organism and blood cultures x 2 are still pending, ID and orthopedic surgeon Dr. Virgil Jeffrey thinks probabilities and fusion causing too much pain and swelling. Patient had office aspiration as mentioned above and then 50 mill was aspirated by orthopedic surgeon to relieve his knee pain. Empirically patient discharged on 5 more days of Augmentin 875 mg twice daily. Knee x-ray shows osteophytic changes notable in the medial compartment with joint space narrowing with subchondral sclerosis and cystic changes. Joint effusion. Joint fluid analysis shows synovial WBC 14,000,, neutrophil 82% lymphocyte 11%. No crystals. patient advised [id number] Tylenol and/or ibuprofen for pain control. Follow-up with orthopedic surgery office in [address] Zeferino Jeffrey. 2. Remote history of repair of Right ACL; with subsequent DVT with the patient currently not on anticoagulation - Noted. 3. Overweight; with BMI of 28.7 this admission - Weight loss will be recommended. 4. DVT prophylaxis - SCD on right lower extremity only with likely impending surgical I&D. Patient was admitted as inpatient but was discharged because of sooner recovery after knee aspiration to decrease swelling and joint fluid analysis is not suggestive of septic arthritis therefore is discharged sooner than expected at time of admission. Discharge medication reconciliation done. Discharge follow-up instructions completed. Discharge process discussed with the patient and all questions were answered to patient's satisfaction. Follow with PCP in 1 to 2 weeks Total time spent, exact 35 minutes on discharge meds reconciliation, examination, coordination of care with nurses and ancillary staff, review of imaging and blood test and discussion with the patient on follow-up instructions. Medications at Discharge Home Medications amoxicillin 875 mg-potassium clavulanate 125 mg tablet 1 tab PO BID 5 days #10 tabs 03/04/24 Physical Exam Narrative Seen and examined. Patient does not have other medical problems. Had right ACL repair in the past. Patient said he twisted left knee when he was 15 or 16-year-old. Physical exam General: Alert, Oriented x3, Cooperative HEENT: Atraumatic, PERRLA, EOMI, Normocephalic Oral: No Gingival or Mucosal Lesions/ Ulcerations Neck: Supple, No JVD, Negative Carotid Bruits Chest wall/Lungs: Air entry diminished in bilateral lung bases. No crepitation/rhonchi Cardiovascular: Regular rate, Regular Rhythm, Normal S1, Normal S2, No M/G/R Abdomen: Bowel Sounds Present, Soft, Non Tender, Non-Distended : No dysuria. No renal angle tenderness. No suprapubic tenderness. Extremities: No edema, Capillary Refill Less than 3 Seconds Skin: No rashes, No breakdown Musculoskeletal: Left knee joint effusion status post aspiration. Swelling improved after aspiration. Mild tenderness present. ROM restricted. Neurological: Cranial nerves II-XII grossly intact, DTR 2+/4. No acute focal neurological deficit. Psych/Mental Status: Normal Affect, Appropriate. Weight / BMI Weight Weight: 199 lb 2.4 oz Body Mass Index (BMI) 28.5 ABG / Lab / Microbiology Data 03/04/24 06:29 03/04/24 06:29 Laboratory: Laboratory Results - last 24 hr 03/03/24 16:57: Fluid Crystals NO CRYSTALS SEEN, Fluid Crystal Source SYNOVIAL, Fl Crystal Path Review Will follow, Synovial Source LEFT KNEE, Synovial Color Yellow, Synovial Appearance Cloudy, Synovial WBC 14.4660 H, Synovial RBC 0.006 H, Synovial Tot Cell Ct 14.5200 H, Synov Polynuclear WBCs 17.637, Synov Mononuclear WBCs 2.103, Synovial Neutrophils 82 H, Synovial Lymphocytes 11, Synovial Monocytes 7, Synovial Polynuclear % 89.4, Synovial Mononuclear % 10.6, Synovial Path Comment May follow 03/04/24 06:29: WBC 8.0, RBC 4.96, Hgb 14.1, Hct 40.9, MCV 82.5, MCH 28.4, MCHC 34.5, RDW Std Deviation 35.5, RDW Coeff of Camelia 11.8, Plt Count 279, MPV 9.7, Immature Gran % (Auto) 0.400, Neut % (Auto) 68.1, Lymph % (Auto) 18.2 L, [place] % (Auto) 12.7 H, Eos % (Auto) 0.3, Baso % (Auto) 0.3, Absolute Neuts (auto) 5.5, Absolute Lymphs (auto) 1.45, Nucleated RBC % 0, Sodium 141, Potassium 3.5, Chloride 109 H, Carbon Dioxide 28.0, Anion Gap 4 L, BUN 14, Creatinine 0.78, Estim Creat Clear Calc 152.29, Est GFR (MDRD) Af Amer 146, Est GFR (MDRD) Non-Af 121, BUN/Creatinine Ratio 17.9, Glucose 99, Calcium 8.5, Phosphorus 3.0, Magnesium 2.0, Total Bilirubin 0.40, AST 20, ALT 35, Alkaline Phosphatase 62, Total Protein 6.7, Albumin 2.9 L, Globulin 3.8, Albumin/Globulin Ratio 0.8 L Microbiology: Microbiology 03/03/24 16:57 Fluid - Synovial (joint) Gram Stain - Final 03/03/24 16:57 Aspirate - Knee Gram Stain - Final Radiography Diagnostic Testing: Radiology Impression Knee X-Ray 03/03/24 21:51 IMPRESSION: 1. Osteophytic changes most notable in the medial compartment with joint space narrowing, subchondral sclerosis and cystic changes and osteophyte formation. 2. Joint effusion. 3. Patellar osteophytes. Electronically Signed: Helio Mendoza MD at 23:31 EDT , D/C Instructions Discharge Diet: No restrictions Weight Bearing Status: Weight bearing as tolerated Call your doctor if you observe: Fever of 101 or Higher, Coldness, Increased Pain, Numbness or Tingling, Change in Color, Inability to urinate, Inability to have a bowel movement, Shortness of breath, Dizziness, Fainting spells, Swelling in the ankles, Chest pain, Prolonged hiccupping, Increased palpitations (irregular heartbeat) and Calf discomfort When: IN 2 WEEKS Meaningful Use Info Meaningful Use Meaningful Use Diagnoses (Choose all that apply): None applicable Ischemic Stroke Statin Dosing Therapy Reference: STATIN DOSE THERAPY REFERENCE: * Patients > 75 years receive moderate or high dose statin therapy. * Patients 75 years or YOUNGER should receive HIGH intensity statin dose unless contraindicated. You will be required to document reason for non-treatment if statin daily dose does not meet guidelines. HIGH DOSE STATIN THERAPY DAILY Atorvastatin > than or = to 40 mg Rosuvastatin > than or = to 20 mg Amlodipine + Atorvastatin > than or = to 2.5/40 mg Ezetimibe + Simvastatin 10/80 mg Simvastatin 80mg Discharge Plan Admission Admit Date/Time: 03/03/24 21:14 Primary Reason for Your Visit: Right knee effusion Attending Provider: Yazan Ontiveros Primary Care Provider: Matthew Loera Consulting Providers: Americo Rollins; Nam Vaca; Zeferino Jeffrey Instructions Additional Instructions / Restrictions: Uyyk-chy-idyeowm Tylenol 500 mg to 1000 mg every 8 hourly as needed for severe pain. Ibuprofen zuhd-pfv-tfuvhuf 400 mg to 600 mg every 8 hourly for severe pain Discharge Orders/Prescriptions Prescriptions: New amoxicillin-pot clavulanate 875-125 mg tablet 1 tab PO BID 5 Days Qty: 10 0RF Referrals / Follow Up: Matthew Loera, MIREYA [Primary Care Provider] - Within 1 Week Zeferino Jeffrey MD [Med Staff - Active Staff] - Within 2 Weeks Disposition Disposition (needs filled in before D/C Order can be placed): Home, Self Care Charges/Coding Visit Charges Inpatient E&M: 80207 Disch Hosp >30min
--- NOTE | 2024-03-04 15:57 | CASEMGMT ---
RN?CM?MAKE UP ARRANGER?CM?to room to meet with patient for initial transition planning/care coordination?assessment.?RN?CM?introduced self and role at [facility].? Pt voices understanding and consents to?assessment?at this time.? Pt sitting up in chair in room in no distress at this time.? Family @ bedside and pt agreeable to them being present during assessment. Pt is A/O at this time and answers all questions appropriately.?? Care providers, pharmacy, and demographics verified/updated at this time. PCP: Dr Matthew Loera Specialists:none Preferred Pharmacy: [facility] Retail Insurance: Self-pay Prescription Benefit:?none LNOK: . Pt wishes for Edgar, co-worker/friend, to be listed as primary contact, as he has a cell phone and he can reach pt/family, if needed. Living Arrangements: Lives w/his and 4 children in 2-story home w/2 steps to enter. [employer]. Pt is indep/very active @ baseline. Transportation:?Hire drivers DME: ?Pt has crutches and has a walker he plans to borrow from family member. He denies other DME needs. HHC/SNF: No hx. No needs identified. Pt wishes to return home and states has no concerns with going home. r?CM?if any further questions/concerns/needs arise.? Voices understanding. PLAN:??Home w/family support and discharge plans in place. Clyde PATINON?RN?CM
--- NOTE | 2024-03-04 16:00 | NURSING ---
All documentation by licensed nursing assistant, Augustus Morton, reviewed by acute care nursing assistant, Ladonna PATINON, RN.
--- NOTE | 2024-03-04 16:27 | PHA.DC_ITS ---
Pharmacy OR Med Reconciliation Pharmacy Service has performed discharge medication reconciliation for this patient. Unable to family counselor, medication reviewed. The patient's discharge medication list was reviewed for discrepancies and discrepancies were resolved. Medications at Discharge Home Medications amoxicillin 875 mg-potassium clavulanate 125 mg tablet 1 tab PO BID 5 days #10 tabs 03/04/24
[2024-03-04 17:44] VITALS: BP 131/75; PULSE 75; RESP 18; TEMP 36.8; O2SAT 100
[2024-03-05 09:16] LABS: Pathologist Comment Reviewed
== END 2024-03-04 18:33 | disposition home or self-care (01) | DRG 566 ==
LOC: ED 20:39 → MS3 21:39
PROVIDERS: Admitting Provider Internal Medicine; Emergency Provider Emergency Medicine; PCP Physician Assistant; Visit Provider Internal Medicine
DX: M25.462 Effusion, left knee (principal); E66.3 Overweight; M17.12 Unilateral primary osteoarthritis, left knee; M76.892 Other specified enthesopathies of left lower limb, excluding foot; Z68.28 Body mass index [BMI] 28.0-28.9, adult; X58.XXXA Exposure to other specified factors, initial encounter; Z79.01 Long term (current) use of anticoagulants; Z86.718 Personal history of other venous thrombosis and embolism
CPT/HCPCS: 36415; 73564; 80048; 80053; 83605; 83735; 84100; 85025; 85610; 85652; 85730; 86140; 87040; 87070; 87075; 87205; 89050; 89051; 89060; 93005; 94668; 97161; 99284; J7030; J7050; A4216; J0295; J2405